=== PATIENT | male | born 1995 | race Two or more races ===

== ENCOUNTER 2018-11-27 06:08 | Emergency (ER) | payer OTHER ==
[~2018-11-27] VITALS: Ht 177.8 cm; Wt 70.8 kg
--- NOTE | 2018-11-27 06:12 | NUR ---
pt not in waiting room for triage.
--- NOTE | 2018-11-27 06:20 | NUR ---
pt not in waiting room for triage. no answer.
[2018-11-27 06:24] VITALS: BP 125/88
[2018-11-27] MEDS ORDERED: LORAZEPAM INJ 2 MG/ML VIAL ONE (06:34)
[2018-11-27] MEDS: LORAZEPAM INJ 2 MG/ML VIAL IM ONE (06:37)
--- NOTE | 2018-11-27 06:37 | NUR ---
pt medicated as ordered.
[2018-11-27] MEDS ORDERED: MORPHINE SULFATE INJ 4 MG/ML DISP.SYRIN ONE (06:44)
[2018-11-27] MEDS ORDERED: ONDANSETRON HCL/PF 4 MG/2 ML VIAL ONE (06:44)
[2018-11-27] MEDS ORDERED: KETOROLAC TROMETHAMINE 15 MG/ML VIAL ONE (06:46)
== END 2018-11-27 07:19 | disposition home or self-care (01) ==
LOC: ER 06:14
DX: T40.7X1A Poisoning by cannabis (derivatives), accidental (unintentional), initial encounter (principal); F41.9 Anxiety disorder, unspecified; Y92.89 Other specified places as the place of occurrence of the external cause
CPT/HCPCS: 96372; 99283; J2060; J1885; J2270; J2405; J7030

== ENCOUNTER 2018-12-17 18:24 | Emergency (ER) | payer OTHER ==
[~2018-12-17] VITALS: Ht 177.8 cm; Wt 68.0 kg
--- NOTE | 2018-12-17 19:19 | NUR ---
PT RECEIVED FROM DAY SHIFT. PT IS A/OX4. BREATHING EVEN AND UNLABORED. IN NO ACUTE DISTRESS. STATES HE TOOK 3 ADDERALS 30MG EACH. STILL FEELING ANXIOUS. EKG DONE.
[2018-12-17] MEDS ORDERED: LORAZEPAM 0.5 MG TABLET ONE (19:24)
[2018-12-17] MEDS ORDERED: LORAZEPAM 1 MG TABLET PO ONE (19:30)
--- NOTE | 2018-12-17 19:52 | NUR ---
Patient discharged to home in stable condition, accompanied by mother. Written and verbal discharge instructions given and signed. Patient verbalizes understanding of instruction.
[2018-12-17 19:55] VITALS: BP 124/70
== END 2018-12-17 19:57 | disposition home or self-care (01) ==
LOC: ER 18:24
DX: T43.621A Poisoning by amphetamines, accidental (unintentional), initial encounter (principal); F41.9 Anxiety disorder, unspecified; F90.9 Attention-deficit hyperactivity disorder, unspecified type; Y92.89 Other specified places as the place of occurrence of the external cause

== ENCOUNTER 2020-07-17 18:08 | Emergency (ER) | payer OTHER ==
[~2020-07-17] VITALS: Ht 177.8 cm; Wt 74.8 kg
--- NOTE | 2020-07-17 18:37 | NUR ---
BIBS FROM HOME TO ER BED 12. AAOX4. NOT IN RESP DISTRESS, BREATHING EVEN AND UNLABORED. CAME IN FOR FOR AN INTERMITENT L SIDED CHEST TIGHTNESS FOR THE PAST 2-3 MONTHS. PT RATES THAT PAIN 9/10 TIGHNESS NON RADIATING. PT IS NOTED ANXIOUS. PT WAS PLACED ON MONITOR EKG DONE AT BEDSIDE. PROVIDER WAS AT THE BEDSIDE FOR EVAL. ORDERS RECEIVED, NOTED AND CARRIED OUT.
[2020-07-17 19:37] VITALS: BP 116/76
--- NOTE | 2020-07-17 19:37 | NUR ---
Patient discharged to home in stable condition. Written and verbal after care instructions given. Patient verbalizes understanding of instruction. Pt ambulatory with a steady gait
== END 2020-07-17 19:38 | disposition home or self-care (01) ==
LOC: ER 18:14
DX: R07.89 Other chest pain (principal); F41.9 Anxiety disorder, unspecified; Z86.16 Personal history of COVID-19
CPT/HCPCS: 71045-TC

== ENCOUNTER 2021-01-24 19:54 | Emergency (ER) | payer OTHER ==
[~2021-01-24] VITALS: Ht 177.8 cm; Wt 74.8 kg
[2021-01-24 23:31] LABS: BASOPHILS # (AUTO) 0.1 K/uL (0.0-0.2); BASOPHILS % (AUTO) 2.7 % (0.0-2.0); EOSINOPHILS % (AUTO) 1.2 % (0.0-6.0); HEMATOCRIT 42 % (39-51); HEMOGLOBIN 14.5 g/dL (13.5-17.5); LYMPHOCYTES % (AUTO) 39.9 % (20.0-44.0); MEAN CORPUSCULAR HGB CONC 34 g/dl (31.0-36.0); MEAN CORPUSCULAR VOLUME 93 fL (80-96); MONOCYTES # (AUTO) 0.2 K/uL (0.1-1.30); MONOCYTES % (AUTO) 4.8 % (2.0-12.0); NEUTROPHILS # (AUTO) 2.6 K/uL (1.8-8.9); NEUTROPHILS % (AUTO) 51.4 % (43.0-81.0); PLATELET COUNT (AUTO) 236 K/uL (150-450); RED BLOOD CELL COUNT(AUTO) 4.55 MIL/uL (4.5-6.0); WHITE BLOOD COUNT (AUTO) 5.1 K/uL (4.3-11.0)
[2021-01-24 23:50] LABS: CALCIUM, SERUM 8.8 mg/dL (8.5-10.1); CREATININE 0.7 mg/dL (0.6-1.3); POTASSIUM 4.1 mmol/L (3.5-5.1)
--- NOTE | 2021-01-25 00:11 | NUR ---
Patient discharged to home in stable condition. Written and verbal after care instructions given. Patient verbalizes understanding of instruction.
[2021-01-25 00:12] VITALS: BP 128/70
== END 2021-01-25 00:12 | disposition home or self-care (01) ==
LOC: ER 20:01
DX: G47.00 Insomnia, unspecified (principal); F41.9 Anxiety disorder, unspecified
CPT/HCPCS: 36415; 80048-TC; 85025-TC